=== PATIENT | male | born 1960 | race Caucasian/White ===

== ENCOUNTER 2018-01-12 11:43 | Day surgery (SDC) | payer OTHER ==
[2018-01-07 10:22] VITALS: BMI 21.8
[~2018-01-12 11:43] MED LIST: DEXAMETHASONE SOD PHOSPHATE 10 MG/ML 1 ML VIAL IV ONE; HEPARIN SODIUM,PORCINE 5,000 UNIT/ML 1 ML VIAL SQ ONE; LACTATED RINGERS 1,000 ML IV SCH; LIDOCAINE 1% 20 ML VIAL (10MG/ML) FOR IV START INTRADERMA PRN; MIDAZOLAM 2 MG/2 ML VIAL IV PRN; ONDANSETRON 4 MG/2 ML VIAL IVP ONE; Pre Op ABX Message 1 EACH MISC MISCELLANE ONE; fentaNYL (PF) 50 MCG/ML 2 ML AMP IV PRN
[2018-01-12 12:23] VITALS: TEMP 97.7
[2018-01-12] MEDS ORDERED: DEXAMETHASONE SOD PHOS (MDV) 100 MG/10 ML VIAL IV ONE (12:31)
[2018-01-12] MEDS ORDERED: ONDANSETRON 4 MG/2 ML VIAL IVP ONE (12:31)
[2018-01-12] MEDS ORDERED: PROPOFOL 10 MG/ML 20 ML VIAL IV ONE (15:17)
[2018-01-12] MEDS ORDERED: SODIUM CHLORIDE 0.9% 50 ML with ceFAZolin 2,000 MG IV ONE ×2 (15:17)
[2018-01-12] MEDS ORDERED: MIDAZOLAM 2 MG/2 ML VIAL ONE (15:17)
[2018-01-12] MEDS ORDERED: LIDOCAINE 1% INJ 10MG/ML (20 ML MDV) ONE (15:17)
[2018-01-12] MEDS ORDERED: fentaNYL (PF) 50 MCG/ML 2 ML AMP ONE (15:17)
[2018-01-12] MEDS ORDERED: BUPIVACAIN-EPI 0.25%-1:200,000 30 ML VIAL SQ ONE (15:28)
[2018-01-12 15:45] VITALS: RESP 16
[2018-01-12 16:01] VITALS: BP 111/72; PULSE 56
--- NOTE | 2018-01-13 11:59 | P.OP ---
Date of Procedure: 01/12/18 Preoperative Diagnosis: Left upper back lipoma Postoperative Diagnosis: Left upper back sebaceous cyst Procedure(s) Performed: Excision of left upper back sebaceous cyst Anesthesia: MAC Surgeon: Damaso Carroll Estimated Blood Loss (ml): 5 Pathology: other (Left upper back sebaceous cyst) Condition: stable Disposition: PACU Description of Procedure: Patient's placed on the operative table in the lateral position. He received IV sedation. His left upper back was prepped and draped in usual sterile fashion. There was a 5 cm mass. This area was gently through 1% local Xylocaine a skin incision was made and then the mass was entered. It appeared to be a sebaceous cyst. Using a electrocautery cautery and blunt sharp dissection sebaceous cyst was excised. The specimens sent to pathology. The wound was inspected for hemostasis. There is no bleeding seen.. The skin was closed interrupted 3-0 Monocryl suture. Dermabond was applied. Patient tolerated the procedure well and was sent to recovery in stable condition.
== END 2018-01-12 16:40 | disposition home or self-care (01) ==
LOC: OR 11:43
PROVIDERS: ATTEND Surgery
DX: L72.0 Epidermal cyst (principal); Z72.0 Tobacco use
CPT/HCPCS: 11406; 88304; J2250; J1644; J2405; J2001; J3010; J0690; J1100; J2704